=== PATIENT | male | born 1945 ===

== ENCOUNTER 2017-06-09 07:00 | Day surgery (SDC) | payer OTHER | END 2017-06-09 11:40 | disposition home or self-care (01) | LOC: AMB-ENDOS 07:00 | DX: D12.2 Benign neoplasm of ascending colon (principal); K57.30 Diverticulosis of large intestine without perforation or abscess without bleeding; K64.8 Other hemorrhoids ==

== ENCOUNTER 2019-02-15 06:50 | Day surgery (SDC) | payer OTHER | END 2019-02-15 12:00 | disposition home or self-care (01) | LOC: AMB-ENDOS 06:50 | DX: K63.5 Polyp of colon (principal); K57.30 Diverticulosis of large intestine without perforation or abscess without bleeding; D17.79 Benign lipomatous neoplasm of other sites ==

== ENCOUNTER 2019-11-03 07:22 | Outpatient (CLI) | payer OTHER | END 2019-11-03 07:30 | disposition home or self-care (01) | LOC: LAB 07:22 | DX: E11.65 Type 2 diabetes mellitus with hyperglycemia (principal); E78.2 Mixed hyperlipidemia; D50.0 Iron deficiency anemia secondary to blood loss (chronic); N39.0 Urinary tract infection, site not specified; N40.0 Benign prostatic hyperplasia without lower urinary tract symptoms; Z12.11 Encounter for screening for malignant neoplasm of colon; M54.5 Low back pain ==

== ENCOUNTER → 2019-11-11 | Outpatient (CLI) | payer OTHER | END | disposition home or self-care (01) | LOC: MRI 08:55 | PROVIDERS: ATTEND Physical Medicine & Rehabilitation | DX: M54.5 Low back pain (principal) | CPT/HCPCS: 72148 ==

== ENCOUNTER 2019-12-12 18:51 | Inpatient (IN) | payer OTHER ==
[~2019-12-12] VITALS: Ht 180.3 cm; Wt 104.3 kg
[2019-12-12] MEDS ORDERED: LANTUS SOL100 UNIT/1 (19:15)
[2019-12-12] MEDS ORDERED: METFORMIN HCL1000 M2 (19:15)
[2019-12-12] MEDS ORDERED: AVAPRO300 MG (19:15)
[2019-12-12] MEDS ORDERED: GLIMEPIRIDE4 MG (19:15)
[2019-12-23] MEDS ORDERED: PROTONIX40 MG PO (07:37)
[2019-12-23] MEDS ORDERED: ULTRACET PO (07:37)
== END 2019-12-23 10:22 | disposition home or self-care (01) | DRG 417 ==
LOC: ER 18:51 → SURG 12-13 15:28
PROVIDERS: Surgery; ADMIT Internal Medicine; ATTEND Internal Medicine
PROC: BW21ZZZ Computerized Tomography (CT Scan) of Abdomen and Pelvis (ICD-10-PCS; 2019-12-12)
PROC: 0FJB8ZZ Inspection of Hepatobiliary Duct, Via Natural or Artificial Opening Endoscopic (ICD-10-PCS; 2019-12-13)
PROC: 0FJD8ZZ Inspection of Pancreatic Duct, Via Natural or Artificial Opening Endoscopic (ICD-10-PCS; 2019-12-13)
PROC: BF14YZZ Fluoroscopy of Gallbladder, Bile Ducts and Pancreatic Ducts using Other Contrast (ICD-10-PCS; 2019-12-22)
PROC: 0FT44ZZ Resection of Gallbladder, Percutaneous Endoscopic Approach (ICD-10-PCS; principal; 2019-12-22 10:00)
DX: K80.10 Calculus of gallbladder with chronic cholecystitis without obstruction (principal); K85.90 Acute pancreatitis without necrosis or infection, unspecified; K57.30 Diverticulosis of large intestine without perforation or abscess without bleeding; I10 Essential (primary) hypertension; E86.0 Dehydration; E11.65 Type 2 diabetes mellitus with hyperglycemia; M54.40 Lumbago with sciatica, unspecified side; M54.5 Low back pain; N52.9 Male erectile dysfunction, unspecified; C61 Malignant neoplasm of prostate; D12.6 Benign neoplasm of colon, unspecified; Z20.828 Contact with and (suspected) exposure to other viral communicable diseases

== ENCOUNTER 2020-04-21 07:38 | Outpatient (CLI) | payer OTHER ==
[~2020-04-21 07:38] MED LIST: AVAPRO300 MG; GLIMEPIRIDE4 MG; LANTUS SOL100 UNIT/1; METFORMIN HCL1000 M2; PROTONIX40 MG PO; ULTRACET PO
== END 2020-04-21 07:41 | disposition home or self-care (01) ==
LOC: LAB 07:38
DX: E11.65 Type 2 diabetes mellitus with hyperglycemia (principal); E78.2 Mixed hyperlipidemia; E88.89 Other specified metabolic disorders; N39.0 Urinary tract infection, site not specified; D50.0 Iron deficiency anemia secondary to blood loss (chronic); N40.1 Benign prostatic hyperplasia with lower urinary tract symptoms; Z12.11 Encounter for screening for malignant neoplasm of colon

== ENCOUNTER → 2023-09-30 08:20 | Outpatient (CLI) | payer OTHER ==
[2023-09-30 09:31] LABS: HEMATOCRIT 42.9 % (39.0-48.0); HEMOGLOBIN 14.6 g/dL (13-16.00); MEAN CELL VOLUME 84.7 fL (80.0-100.00); MEAN CORPUSCULAR HEMOGLOBIN 28.9 pg (27.00-32.0); MEAN CORPUSCULAR HGB CONC 34.1 g/dl (32.0-36.0); PLATELET COUNT 306 K/uL (150-450); RED BLOOD COUNT 5.07 M/uL (4.00-6.00); RED CELL DISTRIBUTION WIDTH 15.2 % (11.5-14.5)
[2023-09-30 09:57] LABS: INR < 0.93; PARTIAL THROMBOPLASTIN TIME 29.1 SECONDS (22.0-34.0); PROTHROMBIN TIME 9.8 SECONDS (9.0-11.5)
[2023-09-30 10:21] LABS: PH,URINE 5.5 (5.0-8.0); URINE APPEARANCE Clear; URINE BILIRRUBIN Negative (NEGATIVE); URINE BLOOD Negative; URINE COLOR Yellow; URINE GLUCOSE Negative (NEGATIVE); URINE LEUKOCYTE Small; URINE NITRATE Negative; URINE PROTEIN Trace (NEGATIVE); URINE UROBILINOGEN 0.2 E.U./dl
[2023-09-30 10:23] LABS: URINE BACTERIA 25.1 uL (0.0-1933); URINE EPITHELIAL CELLS 14.8 uL (0.0-38.8); URINE RBC 8.3 uL (0.0-20.8); URINE WBC 72.6 uL (0.0-23.2)
[2023-09-30 10:24] LABS: ALBUMIN 3.9 gm/dL (3.4-5.0); BILIRUBIN TOTAL 0.45 mg/dL (0.3-1.2); CALCIUM 9.6 mg/dL (8.5-10.1); CREATININE SERUM 1.05 mg/dL (0.70-1.30); GFR 68.67; GLOBULINA 3.6 G/DL (2.4-3.5); POTASSIUM 4.7 mEq/L (3.5-5.1); TOTAL PROTEIN 7.5 gm/dL (6.4-8.2)
== END | disposition home or self-care (01) ==
LOC: LAB 08:20
PROVIDERS: ATTEND Urology
DX: N39.0 Urinary tract infection, site not specified (principal); N40.1 Benign prostatic hyperplasia with lower urinary tract symptoms; D51.0 Vitamin B12 deficiency anemia due to intrinsic factor deficiency; I25.10 Atherosclerotic heart disease of native coronary artery without angina pectoris; E78.9 Disorder of lipoprotein metabolism, unspecified; R97.20 Elevated prostate specific antigen [PSA]; Z01.818 Encounter for other preprocedural examination; N52.01 Erectile dysfunction due to arterial insufficiency

== ENCOUNTER 2024-05-05 15:43 | Emergency (ER) | payer OTHER ==
[~2024-05-05] VITALS: Ht 180.3 cm; Wt 106.6 kg
[2024-05-05] MEDS ORDERED: MECLIZINE HCL 25 MG TABLET PO ONE ×2 (16:30→16:38)
[2024-05-05 16:55] LABS: HEMATOCRIT 44.8 % (39.0-48.0); HEMOGLOBIN 15.2 g/dL (13-16.00); MEAN CELL VOLUME 87.2 fL (80.0-100.00); MEAN CORPUSCULAR HEMOGLOBIN 29.6 pg (27.00-32.0); PLATELET COUNT 242 K/uL (150-450); RED BLOOD COUNT 5.13 M/uL (4.00-6.00); RED CELL DISTRIBUTION WIDTH 14.6 % (11.5-14.5)
[2024-05-05 17:16] LABS: ALBUMIN 3.8 gm/dL (3.4-5.0); BILIRUBIN TOTAL 0.32 mg/dL (0.3-1.2); CREATININE SERUM 1.03 mg/dL (0.70-1.30); GFR 70.21; GLOBULINA 3.7 G/DL (2.4-3.5); POTASSIUM 3.86 mEq/L (3.5-5.1); TOTAL PROTEIN 7.5 gm/dL (6.4-8.2)
[2024-05-05] MEDS ORDERED: MOTION SICKNESS25 M1 PO (19:11)
== END 2024-05-05 19:30 | disposition home or self-care (01) ==
LOC: ER 15:43
PROVIDERS: General Practice
DX: R42 Dizziness and giddiness (principal); R11.10 Vomiting, unspecified; I10 Essential (primary) hypertension; E11.9 Type 2 diabetes mellitus without complications; Z79.84 Long term (current) use of oral hypoglycemic drugs